=== PATIENT | female | born 2000 | race Caucasian/White ===

== ENCOUNTER 2020-11-03 11:38 | Emergency (ER) | payer OTHER ==
[2020-11-03 11:54] VITALS: BP 120/67
--- NOTE | 2020-11-03 12:25 | ER Document Report ---
ED Medical Screen (RME) - General Chief Complaint: Lower Abdominal Pain Stated Complaint: ABDOMINAL PAIN Time Seen by Provider: 11/03/20 12:18 - HPI Notes: 11/03/20 12:23 19-year-old female presents to the emergency room today for complaints of lower pelvic pain intermittently for the last 3 weeks. Patient reports she has had "red numbers of pain over my ovaries". Last menstrual cycle was 10/20/2020, she has had breakthrough bleeding since 10/05 to 10/28, the end of her menstrual cycle. Patient was seen by sand mill grinder 2 weeks ago, they did an ultrasound and advised her to follow-up in 3 weeks, sooner if needed. Patient is on oral contraceptives. Denies any fevers chills, chest pain, shortness of breath, nausea vomiting or diarrhea. I have greeted and performed a rapid initial assessment of this patient. A co mprehensive ED assessment and evaluation of the patient, analysis of test results and completion of the medical decision making process will be conducted by additional ED providers. PHYSICAL EXAMINATION: GENERAL: Well-appearing, well-nourished and in no acute distress. HEAD: Atraumatic, normocephalic. CV: s1, s2 regular LUNGS: No respiratory distress abd: suprapubic tenderness on palpation. no cva tenderness appreciated bilaterally Musculoskeletal: Normal range of motion - Related Data Allergies/Adverse Reactions: No Known Allergies Allergy (Verified 11/03/20 12:16) Physical Exam - Vital signs Vitals: Temp Pulse Resp BP Pulse Ox 98.6 F 101 H 18 120/67 100 11/03/20 11:52 11/03/20 11:52 11/03/20 11:52 11/03/20 11:52 11/03/20 11:52 Course - Vital Signs Vital signs: Temp Pulse Resp BP Pulse Ox 98.6 F 101 H 18 120/67 100 11/03/20 11:52 11/03/20 11:52 11/03/20 11:52 11/03/20 11:52 11/03/20 11:52
[2020-11-03 13:02] LABS: ABSOLUTE LYMPHOCYTES (AUTO) 1.4 10^3/uL (0.5-4.7); ABSOLUTE MONOCYTES (AUTO) 0.4 10^3/uL (0.1-1.4); ABSOLUTE NEUT (AUTO) 2.5 10^3/uL (1.7-8.2); BASOPHILS % (AUTO) 0.4 % (0-2); EOSINOPHILS % (AUTO) 0.7 % (0-6); HEMOGLOBIN 11.6 g/dL (12.0-15.5); LYMPHOCYTES % (AUTO) 31.3 % (13-45); MEAN CORPUSCULAR HEMOGLOBIN 24.9 pg (27.0-33.4); MEAN CORPUSCULAR HGB CONC 33.1 g/dL (32.0-36.0); MEAN CORPUSCULAR VOLUME 75 fl (80-97); MONOCYTES % (AUTO) 10.2 % (3-13); PLATELET COUNT 293 10^3/uL (150-450); RED BLOOD COUNT 4.65 10^6/uL (3.72-5.28); SEGMENTED NEUTROPHILS % (AUTO) 57.4 % (42-78); TOTAL CELLS COUNTED % (AUTO) 100 %; WHITE BLOOD COUNT 4.3 10^3/uL (4.0-10.5)
[2020-11-03 13:05] LABS: APPEARANCE,URINE CLOUDY; BILIRUBIN,URINE NEGATIVE (NEGATIVE); COLOR,URINE YELLOW; GLUCOSE, URINE NEGATIVE (NEGATIVE); KETONES,URINE NEGATIVE (NEGATIVE); LEUKOCYTE ESTERASE,URINE LARGE (NEGATIVE); NITRITE,URINE NEGATIVE (NEGATIVE); PROTEIN,URINE NEGATIVE (NEGATIVE); URINE SPECIFIC GRAVITY 1.013; UROBILINOGEN,URINE NEGATIVE mg/dL (<2.0)
--- NOTE | 2020-11-03 13:24 | RADIOLOGY REPORT (SQ) ---
EXAM DESCRIPTION: U/S NON OB PEL TV W/DOPPLER IMAGES COMPLETED DATE/TIME: 11/03/2020 1:11 pm REASON FOR STUDY: pelvic pain, break through bleeding, lmp 10/20/20 COMPARISON: None. TECHNIQUE: Dynamic and static grayscale images acquired of the pelvis via transvaginal approach and recorded on PACS. Additional selected color Doppler and spectral images recorded. LIMITATIONS: None. FINDINGS: UTERUS: Contour normal. No mass. ENDOMETRIAL STRIPE: No focal or generalized thickening. No masses. CERVIX: 2.1 cm. No nabothian cysts. RIGHT OVARY AND DOPPLER: Normal size. No worrisome masses. Normal arterial vascular flow without evid ence for torsion. LEFT OVARY AND DOPPLER: Normal size. Multiple follicles. No worrisome masses. Normal arterial vascu lar flow without evidence for torsion. FREE FLUID: None noted. OTHER: No other significant finding. MEASUREMENTS: UTERUS: 7.6 x 4 x 3 cm ENDOMETRIAL STRIPE: 4 mm. RIGHT OVARY: 2.7 x 1.7 x 1.7 cm. LEFT OVARY: 1.8 x 2.2 x 2 cm IMPRESSION: The study is essentially normal. There are multiple follicles on the left ovary. Corre late for polycystic ovarian syndrome. TECHNICAL DOCUMENTATION: JOB ID: [id number] 2010 [employer]- All Rights Reserved Rev-04/06 Reading location - IP/workstation name: [email or web address]
[2020-11-03 13:29] LABS: ALBUMIN 4.3 g/dL (3.5-5.0); ALKALINE PHOSPHATASE 64 U/L (38-126); ANION GAP 10 (5-19); ASPARTATE AMINO TRANSFERASE 28 U/L (14-36); BILIRUBIN,TOTAL 0.3 mg/dL (0.2-1.3); BLOOD UREA NITROGEN 7 mg/dL (7-20); CALCIUM 9.7 mg/dL (8.4-10.2); CARBON DIOXIDE 19 mmol/L (22-30); CHLORIDE 110 mmol/L (98-107); GLUCOSE 93 mg/dL (75-110); POTASSIUM 4.1 mmol/L (3.6-5.0); TOTAL PROTEIN 7.6 g/dL (6.3-8.2)
--- NOTE | 2020-11-03 14:04 | ER Document Report ---
ED GI/ - General Chief Complaint: Abdominal Pain Stated Complaint: ABDOMINAL PAIN Time Seen by Provider: 11/03/20 12:18 Notes: HPI: 19-year-old female with the onset of intermittent lower pelvic pain for around 4 weeks. Last menstrual period was October 21. She denies any nausea, vomiting, or fevers. She denies any dysuria, vomiting, or diarrhea. She did see an READING SPECIALIST with a urine analysis with no pelvic exam performed. ROS: See HPI All other review of systems reviewed and otherwise negative Reviewed vital signs and nursing note as charted by RN. PHYSICAL EXAM: CONSTITUTIONAL: Alert and oriented and responds appropriately to questions. Well-appearing; well-nourished HEAD: Normocephalic; atraumatic EYES: Sclerae not pale ENT: Normal nose; no rhinorrhea; moist mucous membranes; pharynx without lesions noted NECK: Supple without meningismus; non-tender; no cervical lymphadenopathy, no masses CARD: Regular rate and rhythm; no murmurs; symmetric distal pulses RESP: Normal chest excursion without splinting or tachypnea; breath sounds clear and equal bilaterally ABD/GI: Normal bowel sounds; non-distended; soft, minimal tenderness to the periumbilical area. No distinct right lower quadrant tenderness BACK: The back appears normal and is non-tender to palpation EXT: Normal ROM in all joints; non-tender to palpation; no edema SKIN: No acute lesions noted NEURO: CN 2-12 intact; 5/5 bilateral upper and lower extremity strength with sensation intact to light touch PSYCH: The patient's mood and manner are appropriate. Grooming and personal hygiene are appropriate. - Related Data Allergies/Adverse Reactions: No Known Allergies Allergy (Verified 11/03/20 12:16) Home Medications: Topiramate, sertraline, pantoprazole Past Medical History - Social History Smoking Status: Never Smoker Frequency of alcohol use: None Family History: Reviewed & Not Pertinent Physical Exam - Vital signs Vitals: Temp Pulse Resp BP Pulse Ox 98.6 F 101 H 18 120/67 100 11/03/20 11:52 11/03/20 11:52 11/03/20 11:52 11/03/20 11:52 11/03/20 11:52 Course - Re-evaluation Re-evalutation: Given the history and physical examination, we will obtain basic labs, urine analysis and test, and perform a transvaginal ultrasound. Would like to evaluate for the possibility of an ectopic , ovarian pathology, or urinary tract infection. I do believe any upper abdominal symptomatology including gallstones, pancreatitis, transaminitis to be unlikely. Given the length of symptoms and the location of the patient's pain I do believe acute appendicitis to be unlikely. 11/03/20 14:04 Imaging and labs thus far as recorded. 11/03/20 15:26 Vital signs are stable. No pain on repeat exam. Pelvic examination shows no obvious external or internal lesions. No cervical motion tenderness or adnexal masses or tenderness. Pelvic labs as recorded. Rocephin has been provided. Urine culture has been sent. Given the mild cramping despite the small cyst, I do believe intermittent torsion to be unlikely. Currently without pain patient will be discharged home with strict return precautions and follow-up with the primary care physician for reassessment and treatment. - Vital Signs Vital signs: Temp Pulse Resp BP Pulse Ox 98.6 F 101 H 18 120/67 100 11/03/20 11:52 11/03/20 11:52 11/03/20 11:52 11/03/20 11:52 11/03/20 11:52 - Laboratory Results Result Diagrams: 11/03/20 12:30 11/03/20 12:30 Laboratory Results Interpreted: 11/03/20 11/03/20 11/03/20 12:30 12:30 12:30 Hgb 11.6 L Hct 35.0 L MCV 75 L MCH 24.9 L RDW 16.0 H Chloride 110 H Carbon Dioxide 19 L Ur Leukocyte Esterase LARGE H Critical Laboratory Results Reviewed: No Critical Results - Radiology Results Critical Radiology Results Reviewed: No Critical Results Discharge - Discharge Clinical Impression: Pelvic pain Condition: Good Disposition: HOME, SELF-CARE Additional Instructions: Come back immediately for any worsening cramping, change in location or quality of pain, fevers or vomiting, or any other acute problems. Please take the antibiotics as prescribed as well as the Diflucan tablet at the end of your course and follow-up with your primary care physician for reassessment. Prescriptions: Fluconazole [Diflucan] 150 mg PO DAILY #1 tablet Cephalexin Monohydrate [Keflex 500 mg Capsule] 500 mg PO Q8H 5 Days #21 capsule
[2020-11-03] MEDS ORDERED: CEFTRIAXONE 1 GM/D5W RTU 1 GM/50 ML RTUPB IV ONE (15:06)
[2020-11-03 15:17] LABS: T.VAGINALIS (WET MOUNT) NO TRICHOMONAS SEEN; WBCS (WET MOUNT) FEW WBCS SEEN; YEAST (WET MOUNT) NO YEAST SEEN
[2020-11-03 16:42] LABS: CHLAM PCR NOT DETECTED (NOT DETECT)
== END 2020-11-03 16:06 | disposition home or self-care (01) ==
LOC: ER 11:38
DX: R10.2 Pelvic and perineal pain (principal); R10.30 Lower abdominal pain, unspecified
CPT/HCPCS: 99285; 96365; 36415; 87086; 87210; 84702; 85025; 80053; 81001; 87491; 87591; 76830; 93976; J0696